=== PATIENT | female | born 1940 | race Caucasian/White ===

== ENCOUNTER 2018-09-14 09:00 | Outpatient (CLI) | payer MEDICARE, OTHER, SELFPAY | END 2018-09-14 09:20 | PROVIDERS: PCP Family Medicine; Visit Provider Nurse Practitioner Adult Health | DX: G31.84 Mild cognitive impairment of uncertain or unknown etiology (principal); I10 Essential (primary) hypertension | CPT/HCPCS: 99213; 99214 ==

== ENCOUNTER → 2018-09-14 09:00 | Outpatient (BNVA) | payer MEDICARE, OTHER, SELFPAY | PROVIDERS: PCP Family Medicine; Visit Provider Nurse Practitioner Adult Health | DX: R41.3 Other amnesia (principal); G31.84 Mild cognitive impairment of uncertain or unknown etiology | CPT/HCPCS: 99214 ==

== ENCOUNTER 2019-03-04 00:35 | Outpatient (CLI) | payer MEDICARE, OTHER, SELFPAY ==
--- NOTE | 2019-03-04 09:37 | DI.MAMMO_ITS ---
SYMPTOM/DIAGNOSIS: SCREENING, Z12.39, PERSONAL H/O BREAST CA, Z85.3 MAMMOGRAMS: Mammograms were interpreted according to the usual protocol including computer analysis with CAD system, tomosynthesis and C view imaging. The breast tissue is heterogeneously radiodense which lowers the sensitivity of the study. When compared with the previous examination, again noted is the region of apparent scarring in the medial portion of the left breast in this patient who is status post lumpectomy. SUMMARY: No evidence of malignancy. Category 1. Yearly screening mammography is recommended. Breast density, category C. MQSA ASSESSMENT OF FINDINGS: Negative. Category 1. Patient will receive a letter notifying them of these results. Bi-RADS category C. The breasts are heterogeneously dense, which may obscure small masses.
== END 2019-03-04 00:55 ==
PROVIDERS: PCP Family Medicine; Visit Provider Family Medicine
DX: Z12.31 Encounter for screening mammogram for malignant neoplasm of breast (principal); Z85.3 Personal history of malignant neoplasm of breast; Z98.890 Other specified postprocedural states
CPT/HCPCS: 77063; 77067

== ENCOUNTER → 2019-03-09 08:20 | Outpatient (BNVA) | payer MEDICARE, OTHER, SELFPAY | PROVIDERS: PCP Family Medicine; Visit Provider Nurse Practitioner Adult Health | DX: G31.84 Mild cognitive impairment of uncertain or unknown etiology (principal); I10 Essential (primary) hypertension | CPT/HCPCS: 99213 ==

== ENCOUNTER 2019-03-26 11:02 | Outpatient (CLI) | payer MEDICARE, OTHER, SELFPAY ==
[2019-03-26 11:32] LABS: HCT 42.8 % (36.0-46.0); Mean Corp. HGB Concentration 32.7 g/dL (32.0-36.0); Mean Corpuscular Hemoglobin 30.8 pg (27.0-33.0); Mean Corpuscular Volume 94.3 fL (80-95); Mean Platelet Volume 9.7 fL (8.0-11.0); Platelet Count 256 x1000/uL (130-400); RBC 4.54 m/cumm (4.00-5.20); RBC Distribution Width 12.9 % (11.7-14.6)
[2019-03-26 12:34] LABS: Anion Gap 4.9 mmol/L (3-11); BUN 15 mg/dL (7-18); CO2 34.1 mmol/L (21.0-32.0); CREATININE 0.89 mg/dL (0.55-1.02); Calcium 9.4 mg/dL (8.5-10.1); Chloride 103 mmol/L (98-107); Glucose 87 mg/dL (70-100); Potassium 3.7 mmol/L (3.5-5.1); Sodium 142 mmol/L (136-145); Vitamin B12 848 pg/mL (193-986)
== END 2019-03-26 11:22 ==
LOC: NCHCN 11:32 → NCHCO 11:52
PROVIDERS: PCP Family Medicine; Visit Provider Family Medicine
DX: I10 Essential (primary) hypertension (principal); E53.8 Deficiency of other specified B group vitamins
CPT/HCPCS: 36415; 80048; 85027; 82607

== ENCOUNTER 2019-08-14 09:51 | Emergency (ER) | payer MEDICARE, OTHER, SELFPAY ==
--- NOTE | 2019-08-14 09:53 | ED.GENADUL_ITS ---
Discharge Plan Disposition Patient Disposition: HOME Condition: Stable Discharge Details Chief Complaint: Laceration Clinical Impression: Finger laceration Primary Care Provider: Ramona Atkins ED Provider: Naheed Ellis Home Meds and New Rx's Prescriptions: New cephalexin [Keflex] 500 mg capsule 500 mg PO QID 7 Days Qty: 28 RF: 0 Continued turmeric root extract 500 mg capsule 500 mg PO DAILY RF: 0 Vitamin B-12 250 mcg tablet 250 mcg PO DAILY RF: 0 losartan 50 MG tablet 25 mg PO DAILY RF: 0 potassium chloride 10 MEQ tablet extended release 10 meq PO BID RF: 0 amlodipine 5 MG tablet 5 mg PO DAILY RF: 0 aspirin [Aspir-81] 81 MG tablet,delayed release (DR/EC) 1 tab PO DAILY RF: 0 hydrochlorothiazide 12.5 MG capsule 12.5 mg PO DAILY RF: 0 Fish Oil 1 EACH capsule 1 tab PO BID RF: 0 cholecalciferol (vitamin D3) [Vitamin D3] 1,000 UNIT capsule 1 cap PO DAILY RF: 0 calcium citrate-vitamin D3 [Citracal + D Maximum] 1 EACH tablet 1 ea PO BID RF: 0 acetaminophen [Mapap Extra Strength] 500 MG tablet 500 mg PO Q4H PRN PRNQty: 30 RF: 0 Discharge Instructions Instructions: Finger Laceration (ED) Additional Instructions: Keep wound clean dry and intact. Cover if risk of contamination but keep open t o air if relaxing at home. Wash with soap and water and cover with topical antibiotic ointment if any sign of redness, swelling or pain. Follow-up with your primary care doctor this week for reevaluation. Return to the emergency department if you develop any worsening or new concerning symptoms. Discharge Data Discharge Physician: Naheed Ellis Medical Decision Making 78-year-old female presents with right thumb puncture wound sustained on possibly a sharp piece of glass while she [place] garbage [place] the [place]. She denies any known needle puncture. There is a small superficial laceration t o her right thumb without tenderness, active bleeding or palpable foreign body. She is neurovascularly intact without evidence of bony injury. We will give a tetanus due to risk of contaminated wound. Patient states she does not think she had a needle puncture and does not want tested for any com municable diseases including HIV, hep C, hep B and does not want any prophylaxis for this. Will send for x-ray to rule out foreign body and so can irrigate her right thumb. Due to risk of unknown contamination, will treat with prophylactic oral antibiotics. X-ray negative for foreign body or fracture. Wound covered with topical antibiotic ointment and Band-Aid. Prescription for Keflex given. She is instructed on proper wound care, follow-up with her primary care doctor for evaluation and to return here at any time if worse. Imaging Data Radiologic Study: Radiologist's impression: XR Right Finger(s) EXAM DATE/TIME: 08/14/2019 10:09 AM CLINICAL HISTORY: 78 years old, female; Injury or trauma; Injury history: Puncture wound distal thumb; Initial encounter; Laceration; Finger; Right TECHNIQUE: Imaging protocol: XR Right fingers. Views: Minimum 2 views. COMPARISON: No relevant prior studies available. FINDINGS: Bones/joints: Degenerative changes in the phone carpometacarpal joint Degenerative changes in the IP joint and thumb metacarpal phalangeal joint There is no evidence of acute fracture. There is no evidence of malalignment or dislocation.. Soft tissues: Soft tissue swelling of the thumb IMPRESSION: There is no evidence of acute fracture. There is no evidence of malalignment or dislocation.. HPI General Mode of arrival: ambulatory . Date/Time Provider Initiated Documentation: 08/14/19 09:53 . Limitations to Documentation: no limitations . Information obtained by: patient . HPI Narrative: Patient is a 78-year-old female who presents with right thumb injury sustained while emptying her trash [place] the dump. Patient states she was unsure that she sustained an injury and only noticed when she got in her car that her right thumb was bleeding. Patient states she was emptying plastic, and bottles and thinks she cut her right thumb on a glass baby bottle that she uses for her cats at home. She states she picked it up to look at it but was unaware that she cut herself. She denies any known needle puncture. She states she is unsure of her tetanus status. She denies any other injuries. She denies known foreign bodies. Related Data Home Medications Medication Instructions Recorded Confirmed Fish Oil 1 tab PO BID 09/04/15 08/14/19 amlodipine 5 mg PO DAILY 09/04/15 08/14/19 aspirin [Aspir-81] 1 tab PO DAILY 09/04/15 08/14/19 hydrochlorothiazide 12.5 mg PO DAILY 09/04/15 08/14/19 losartan 25 mg PO DAILY 09/04/15 08/14/19 potassium chloride 10 meq PO BID 09/04/15 08/14/19 cholecalciferol (vitamin D3) 1 cap PO DAILY 12/04/15 08/14/19 [Vitamin D3] calcium citrate-vitamin D3 1 ea PO BID 05/29/17 08/14/19 [Citracal + D Maximum] acetaminophen [Mapap Extra 500 mg PO Q4H PRN PRN #30 tab 06/05/17 08/14/19 Strength] cyanocobalamin (vitamin B-12) 250 250 mcg PO DAILY 09/14/18 08/14/19 mcg tablet turmeric root extract 500 mg 500 mg PO DAILY 09/14/18 08/14/19 capsule cephalexin [Keflex] 500 mg PO QID 7 Days #28 cap 08/14/19 Previous Rx's Medication Instructions Recorded acetaminophen [Mapap Extra 500 mg PO Q4H PRN PRN #30 tab 06/05/17 Strength] cephalexin [Keflex] 500 mg PO QID 7 Days #28 cap 08/14/19 Allergies Allergy/AdvReac Type Severity Reaction Status Date / Time ibuprofen Allergy Intermediate STOMACH Unverified 08/14/19 09:57 PAIN naproxen sodium [From Aleve] Allergy Intermediate STOMACH Unverified 08/14/19 09:57 PAIN meperidine HCl [From Demerol] AdvReac Intermediate Nausea Unverified 08/14/19 09:57 Review of Systems Review of Systems ROS Unobtainable: All systems reviewed & are unremarkable except as noted in HPI and below PFSH Medical History Cholelithiasis Ductal carcinoma of breast HTN (hypertension) (Chronic) Hypertension Mild cognitive impairment (Chronic) Osteoarthritis of knee, unilateral Tubular adenoma of colon Surgical History Appendectomy 1978 Arthroplasty of knee Right-with menisectomy and medial microfracture procedure for OA Cholecystectomy (06/04/17) Colonoscopy - IV Sedation 2011 discectomy L4-1970 Ligation of fallopian tube 1977 Rotator Cuff Repair 1998 Family History Other Alzheimer's dementia Essential hypertension Heart disease Stroke Social History Smoking/Tobacco Use Status: Former Tobacco Use Alcohol Intake: current Alcohol Intake frequency: a few times a week Drug use: Never Do you feel safe at home: Yes Exam Const General: cooperative, healthy appearing and no acute distress HENMT Head: normal to inspection Mouth: oral mucosae normal Eyes General: appearance normal, both eyes and all related structures Neck Neck: normal visual inspection Resp Effort & Inspection: normal respiratory effort and able to speak in complete sentences Cardio Rate: regular rate Skin General skin exam: no rashes or lesions noted Neuro General: alert, awake and oriented x3 Motor: muscle tone normal throughout Other: Muscle strength 5/5 right thumb. Extrem Hand/finger images: 1. 4mm c shaped superficial laceration on medial aspect of distal finger pad of R thumb. No active bleeding. No tenderness to palpation. No palpable foreign bod y. No erythema, edema, ecchymoses. No bony deformity. Other: Normal range of motion of right thumb. No tendon injury. Psych Appearance: grossly normal Affect: normal affect
[2019-08-14 09:54] VITALS: BP 132/77; PULSE 59; RESP 16; TEMP 36.3; O2SAT 98
--- NOTE | 2019-08-14 10:08 | DI.RAD_ITS ---
SYMPTOM/DIAGNOSIS: S/P PUNCTURE WOUND, ? FX OR FOREIGN BODY RIGHT THUMB: There is no evidence of an acute fracture or dislocation. There are degenerative changes involving the carpal metacarpal joint and interphalangeal joint. Nil else.
--- NOTE | 2019-08-14 10:49 | DI.VRAD_ITS ---
EXAM: XR Right Finger(s) EXAM DATE/TIME: 08/14/2019 10:09 AM CLINICAL HISTORY: 78 years old, female; Injury or trauma; Injury history: Puncture wound distal thumb; Initial encounter; Laceration; Finger; Right TECHNIQUE: Imaging protocol: XR Right fingers. Views: Minimum 2 views. COMPARISON: No relevant prior studies available. FINDINGS: Bones/joints: Degenerative changes in the phone carpometacarpal joint Degenerative changes in the IP joint and thumb metacarpal phalangeal joint There is no evidence of acute fracture. There is no evidence of malalignment or dislocation.. Soft tissues: Soft tissue swelling of the thumb IMPRESSION: There is no evidence of acute fracture. There is no evidence of malalignment or dislocation.. Dictated and Authenticated by: Ana Perez MD. Ordering:AIDE Farfan MD
== END 2019-08-14 11:33 | disposition home or self-care (01) ==
PROVIDERS: Emergency Provider Physician Assistant; PCP Family Medicine
DX: S61.011A Laceration without foreign body of right thumb without damage to nail, initial encounter (principal); W26.8XXA Contact with other sharp object(s), not elsewhere classified, initial encounter; I10 Essential (primary) hypertension
CPT/HCPCS: 90471; 99284; 73140; 99283

== ENCOUNTER 2019-10-22 09:47 | Emergency (ER) | payer MEDICARE, OTHER, SELFPAY ==
[2019-10-22] VITALS (8 sets, daily range): BP systolic 151–173; BP diastolic 82–86; PULSE 61–65; RESP 12–14; TEMP 36.6; O2SAT 97–99
--- NOTE | 2019-10-22 09:50 | ED.GENADUL_ITS ---
Discharge Plan Disposition Patient Disposition: HOME Condition: Stable Discharge Details Chief Complaint: Dizzy/Sync Clinical Impression: Vertigo Primary Care Provider: Ramona Atkins ED Provider: Nestor Edmonds Home Meds and New Rx's Prescriptions: New meclizine 25 mg tablet 25 mg PO TID PRN (Reason: dizziness) Qty: 20 RF: 0 Continued turmeric root extract 500 mg capsule 500 mg PO DAILY RF: 0 Vitamin B-12 250 mcg tablet 250 mcg PO DAILY RF: 0 losartan 50 MG tablet 25 mg PO DAILY RF: 0 potassium chloride 10 MEQ tablet extended release 10 meq PO BID RF: 0 amlodipine 5 MG tablet 5 mg PO DAILY RF: 0 aspirin [Aspir-81] 81 MG tablet,delayed release (DR/EC) 1 tab PO DAILY RF: 0 hydrochlorothiazide 12.5 MG capsule 12.5 mg PO DAILY RF: 0 Fish Oil 1 EACH capsule 1 tab PO BID RF: 0 cholecalciferol (vitamin D3) [Vitamin D3] 1,000 UNIT capsule 1 cap PO DAILY RF: 0 acetaminophen [Mapap Extra Strength] 500 MG tablet 500 mg PO Q4H PRN PRNQty: 30 RF: 0 Discharge Instructions Instructions: Vertigo (ED) Additional Instructions: follow up with your primary care provider within 1 week especially if symptoms continue take the meclizine 3 times a day for the first 2 days then use as needed if you have worsening symptoms, chest pain, weakness return to the emergency department Medical Decision Making 78 yo female with hx of mild cognitive impairment, htn, who comes in with chief complaint of feeling dizzy intermittently with room spinning sensation with head movements for 3 days. Denies fevers, chills, chest pain, abd pain, sob, headache. She called ems today because she felt she might fall due to her dizziness. She was having some word finding difficulty with ems en route so they called in a stroke alert, she arrives caox4 with clear speech, reassuring HINTs exam and nih of 0 and on review of chart has had issues with speech chronically which she states is accurate and her speech is normal for her. I suspect peripheral vertigo, will tx with meclizine and given persistent symptoms for [address] to eval for mass. Given reassuring HINTS and negative NIH doubt cva. No chest pain or sob so doubt acs, pe or dissection at this time pt feeling better with stable neuro exam. Labs and imaging unremarkable. Given improved symptoms and no findings to suggest cva/tia do not feel mri or admission indicated but will make sure she has steady gait before d/c. If she fails this she may require admission for vertigo pt ambulating with steady gait on her own, will d/c home Differential Diagnosis Differential Diagnosis: vertigo, dementia, tia, cva Medical Records Medical records reviewed: Yes I reviewed the patient's medical records. Imaging Data Radiologic Study: Attestation: I personally reviewed and interpreted this imaging study as follows: Imaging: CT Scan Radiologist's impression: IMPRESSION: No acute intracranial process. Lab Data Lab results reviewed: Yes I reviewed the patient's lab results. ECG Data Attestation: I personally reviewed and interpreted this ECG (s) as follows: Prior ECG tracings: not available for review Interpretation: sinus rhythm, rate of 65, pr 206, no acute st t wave ischemic findings HPI General Mode of arrival: EMS . Date/Time Provider Initiated Documentation: 10/22/19 09:48 . Limitations to Documentation: no limitations . Information obtained by: patient . History of Present Illness 78 year old F presents to the emergency department with the chief complaint of dizziness, described as moderate, Patient started experiencing this day(s) (3) and it has been intermittent. No relieving factors improve symptom(s), No exacerb ating factors reported . Patient notes nausea/vomiting. Patient did receive the following treatments prior to arrival, none Related Data Home Medications Medication Instructions Recorded Confirmed Fish Oil 1 tab PO BID 09/04/15 10/22/19 amlodipine 5 mg PO DAILY 09/04/15 10/22/19 aspirin [Aspir-81] 1 tab PO DAILY 09/04/15 10/22/19 hydrochlorothiazide 12.5 mg PO DAILY 09/04/15 10/22/19 losartan 25 mg PO DAILY 09/04/15 10/22/19 potassium chloride 10 meq PO BID 09/04/15 10/22/19 cholecalciferol (vitamin D3) 1 cap PO DAILY 12/04/15 10/22/19 [Vitamin D3] acetaminophen [Mapap Extra 500 mg PO Q4H PRN PRN #30 tab 06/05/17 10/22/19 Strength] cyanocobalamin (vitamin B-12) 250 250 mcg PO DAILY 09/14/18 10/22/19 mcg tablet turmeric root extract 500 mg 500 mg PO DAILY 09/14/18 10/22/19 capsule meclizine 25 mg PO TID PRN #20 tab 10/22/19 Previous Rx's Medication Instructions Recorded acetaminophen [Mapap Extra 500 mg PO Q4H PRN PRN #30 tab 06/05/17 Strength] meclizine 25 mg PO TID PRN #20 tab 10/22/19 Allergies Allergy/AdvReac Type Severity Reaction Status Date / Time ibuprofen Allergy Intermediate STOMACH Unverified 10/22/19 10:14 PAIN naproxen sodium [From Aleve] Allergy Intermediate STOMACH Unverified 10/22/19 10:14 PAIN meperidine HCl [From Demerol] AdvReac Intermediate Nausea Unverified 10/22/19 10:14 General ANNAMARIE: 4 Review of Systems All systems reviewed & are unremarkable except as noted in HPI and below Constitutional Constitutional: Denies chills, Denies fever(s) and Denies weakness Cardiovascular Cardiovascular: Denies chest pain and Denies dyspnea Respiratory Respiratory: Denies dyspnea Gastrointestinal Gastrointestinal: Denies abdominal pain Musculoskeletal Musculoskeletal: Denies joint swelling Neurologic Neurologic: Denies weakness Psychiatric Psychiatric: Denies depression PFSH Social History Smoking/Tobacco Use Status: Former Tobacco Use Alcohol Intake: current Alcohol Intake frequency: a few times a week Drug use: Never Substance use type: does not use Do you feel safe at home: Yes Do you feel safe in your relationship?: Yes Exam Const General: no acute distress Orientation: alert HENMT Head: normal to inspection Ears: external ears normal General nose exam: external nose normal Mouth: moist mucous membranes Eyes General: appearance normal, both eyes and all related structures Neck Neck: normal visual inspection Resp Effort & Inspection: normal respiratory effort and able to speak in complete sentences Cardio Rate: regular rate Skin General skin exam: no rashes or lesions noted Neuro General: alert and oriented x3 Extrem General: normal to inspection Psych Mental Status: mental status grossly normal
--- NOTE | 2019-10-22 09:55 | DI.CT_ITS ---
EXAM: CT HEAD - STROKE PROTOCOL CLINICAL HISTORY: stroke symptoms TECHNIQUE: The exam was performed according to the usual protocol without contrast. COMPARISON: HEAD AND CSPINE W/O CONTRAST from 09/04/2015 FINDINGS: The ventricles and sulci are consistent with the patient's age. There are areas of decreased attenua tion in the white matter, most consistent with small vessel ischemic disease. The ventricles are int act. The basilar cisterns are patent. No acute intracranial hemorrhage, midline shift or mass effec t is present. The visualized paranasal sinuses are clear as are the mastoid air cells. The calvariu m is intact. IMPRESSION: No acute intracranial process. The findings were discussed with the emergency department on the date of the examination.
[2019-10-22 10:14] LABS: Abs Immature Grans 0.01 k/cumm (0.0-0.09); Absolute Basophil Count 0.03 k/cumm (0.0-0.2); Absolute Eosinophil Count 0.12 k/cumm (0.0-0.7); Absolute Lymphocyte Count 2.05 k/cumm (1.2-3.4); Absolute Monocyte Count 0.37 k/cumm (0.11-0.7); Basophils % 0.6; Eosinophils % 2.4; HCT 45.2 % (36.0-46.0); Immature Grans % 0.2; Lymphocytes % 40.4; Mean Corp. HGB Concentration 33.2 g/dL (32.0-36.0); Mean Corpuscular Volume 93.4 fL (80-95); Mean Platelet Volume 9.7 fL (8.0-11.0); Monocytes % 7.3; Neutrophils % 49.1; Platelet Count 289 x1000/uL (130-400); RBC 4.84 m/cumm (4.00-5.20); RBC Distribution Width 12.9 % (11.7-14.6); White Blood Cell Count 5.08 k/cumm (4.4-10.8)
[2019-10-22] MEDS: Meclizine 25 MG TAB PO (10:20)
[2019-10-22] MEDS: Normal Saline Flush 10 ML SYR IVP (10:20)
[2019-10-22 10:26] LABS: PTT Activated 24.2 sec (21.0-31.4); Prothrombin Time 10.2 sec (9.3-11.0)
[2019-10-22 10:44] LABS: ALT 22 U/L (14-59); AST 19 U/L (15-37); Albumin 3.8 g/dL (3.4-5.0); Alkaline Phosphatase 87 U/L (46-116); Anion Gap 7.8 mmol/L (3-11); BUN 16 mg/dL (7-18); Bilirubin, Total 0.4 mg/dL (0.2-1.0); CO2 29.2 mmol/L (21.0-32.0); Calcium 9.6 mg/dL (8.5-10.1); Chloride 103 mmol/L (98-107); Glucose 89 mg/dL (74-106); Potassium 3.5 mmol/L (3.5-5.1); Sodium 140 mmol/L (136-145); Total Protein 8.3 g/dL (6.4-8.2); Troponin I < 0.05 ng/Ml (<0.06)
--- NOTE | 2019-10-22 13:23 | NUR.NOTE ---
Referral faxed and noted.Nursing Note:
== END 2019-10-22 11:27 | disposition home or self-care (01) ==
PROVIDERS: Emergency Provider Emergency Medicine; PCP Family Medicine
DX: R42 Dizziness and giddiness (principal); G31.84 Mild cognitive impairment of uncertain or unknown etiology; I10 Essential (primary) hypertension
CPT/HCPCS: 36415; 80053; 93005; 99285; 70450; 83735; 84484; 85025; 85610; 85730; 93010; J3490

== ENCOUNTER → 2020-03-09 08:48 | Outpatient (BNVA) | payer MEDICARE, OTHER, SELFPAY | PROVIDERS: PCP Family Medicine; Referring Provider Family Medicine; Visit Provider Nurse Practitioner Adult Health | DX: G31.84 Mild cognitive impairment of uncertain or unknown etiology (principal); I10 Essential (primary) hypertension | CPT/HCPCS: 99212; 99441 ==

== ENCOUNTER 2020-03-31 01:59 | Outpatient (CLI) | payer MEDICARE, OTHER, SELFPAY ==
[2020-03-31 12:44] LABS: HCT 41.7 % (36.0-46.0); HGB 13.9 g/dL (12.0-15.5); Mean Corp. HGB Concentration 33.3 g/dL (32.0-36.0); Mean Corpuscular Hemoglobin 31.5 pg (27.0-33.0); Mean Corpuscular Volume 94.6 fL (80-95); Mean Platelet Volume 9.6 fL (8.0-11.0); Platelet Count 290 x1000/uL (130-400); RBC 4.41 m/cumm (4.00-5.20); RBC Distribution Width 13.1 % (11.7-14.6); White Blood Cell Count 5.56 k/cumm (4.4-10.8)
[2020-03-31 13:37] LABS: ALT 23 U/L (14-59); AST 20 U/L (15-37); Albumin 3.6 g/dL (3.4-5.0); Alkaline Phosphatase 83 U/L (46-116); BUN 15 mg/dL (7-18); Bilirubin, Total 0.5 mg/dL (0.2-1.0); CREATININE 0.98 mg/dL (0.55-1.02); Calcium 9.3 mg/dL (8.5-10.1); Chloride 102 mmol/L (98-107); Estimated GFR 54.75 (mL/min/1.73m2); Glucose 75 mg/dL (74-106); Potassium 3.7 mmol/L (3.5-5.1); Sodium 139 mmol/L (136-145); Total Protein 7.3 g/dL (6.4-8.2)
== END 2020-03-31 02:19 ==
PROVIDERS: PCP Family Medicine; Visit Provider Family Medicine
DX: I10 Essential (primary) hypertension (principal); E53.8 Deficiency of other specified B group vitamins
CPT/HCPCS: 36415; 80053; 85027

== ENCOUNTER 2020-04-11 00:41 | Outpatient (CLI) | payer MEDICARE, SELFPAY ==
--- NOTE | 2020-04-11 | DI.MAMMO_ITS ---
EXAM: MAMMO SCREENING 60 MIN DUR CLINICAL HISTORY: SCREENING, PERSONAL H/O BREAST CA,Z85.3, PREVENTIVE HEALTH CARE,Z00.00 TECHNIQUE: Mammograms were interpreted according to the usual protocol including computer analysis w [employer] CAD system, tomosynthesis and C-view imaging. COMPARISON: Examination is compared with previous examinations including March 2019 FINDINGS: The breasts are of moderate density. Note is made of a prior right upper inner quadrant lumpectomy f or breast carcinoma. There is no intramammary mass or clumped microcalcification. Examination is co mpared with previous examinations including March 2019 and there has been no gross interval change in appearance in comparison with the previous studies. IMPRESSION: No specific evidence of malignancy at this time. Routine screening examinations are suggested at yea rly intervals due to the history of breast carcinoma BI-RADS Cat 1 - Negative: Breast Density - Category B - Scattered areas of fibroglandular density:
== END 2020-04-11 01:01 ==
PROVIDERS: PCP Family Medicine; Visit Provider Family Medicine
DX: Z12.31 Encounter for screening mammogram for malignant neoplasm of breast (principal); Z85.3 Personal history of malignant neoplasm of breast
CPT/HCPCS: 77063; 77067

== ENCOUNTER → 2020-05-29 13:31 | Outpatient (BNVA) | payer MEDICARE, SELFPAY | PROVIDERS: PCP Family Medicine; Referring Provider Family Medicine; Visit Provider Nurse Practitioner Adult Health | DX: G31.84 Mild cognitive impairment of uncertain or unknown etiology (principal); F41.9 Anxiety disorder, unspecified; I10 Essential (primary) hypertension | CPT/HCPCS: 99213; 99214 ==

== ENCOUNTER 2020-06-05 02:06 | Outpatient (CLI) | payer MEDICARE, SELFPAY ==
[2020-06-05 11:57] LABS: HCT 39.6 % (36.0-46.0); HGB 13.1 g/dL (12.0-15.5); Mean Corp. HGB Concentration 33.1 g/dL (32.0-36.0); Mean Corpuscular Hemoglobin 30.8 pg (27.0-33.0); Mean Corpuscular Volume 93.2 fL (80-95); Mean Platelet Volume 9.8 fL (8.0-11.0); Platelet Count 296 x1000/uL (130-400); RBC 4.25 m/cumm (4.00-5.20); RBC Distribution Width 12.7 % (11.7-14.6); White Blood Cell Count 5.89 k/cumm (4.4-10.8)
[2020-06-05 13:03] LABS: ALT 16 U/L (14-59); AST 18 U/L (15-37); Albumin 3.5 g/dL (3.4-5.0); Alkaline Phosphatase 82 U/L (46-116); Anion Gap 8.1 mmol/L (3-11); BUN 17 mg/dL (7-18); Bilirubin, Total 0.5 mg/dL (0.2-1.0); CO2 28.9 mmol/L (21.0-32.0); Calcium 9.3 mg/dL (8.5-10.1); Chloride 103 mmol/L (98-107); Folate > 20.0 ng/mL (8.6-20.0); Glucose 104 mg/dL (74-106); Potassium 3.9 mmol/L (3.5-5.1); Sodium 140 mmol/L (136-145); TSH (W/Ref FT4) 1.73 uIU/mL (0.36-3.74); Total Protein 7.1 g/dL (6.4-8.2); Vitamin B12 1897 pg/mL (193-986)
== END 2020-06-05 02:26 ==
PROVIDERS: PCP Family Medicine; Visit Provider Family Medicine
DX: I10 Essential (primary) hypertension (principal); E53.8 Deficiency of other specified B group vitamins; R41.3 Other amnesia
CPT/HCPCS: 36415; 80053; 85027; 82607; 82746; 84443; 85025

== ENCOUNTER → 2020-07-10 13:00 | Outpatient (BNVA) | payer MEDICARE, SELFPAY | PROVIDERS: PCP Family Medicine; Referring Provider Family Medicine; Visit Provider Nurse Practitioner Adult Health | DX: G31.84 Mild cognitive impairment of uncertain or unknown etiology (principal); I10 Essential (primary) hypertension | CPT/HCPCS: 99213 ==

== ENCOUNTER → 2020-08-23 08:35 | Outpatient (BNVA) | payer MEDICARE, SELFPAY | PROVIDERS: PCP Family Medicine; Referring Provider Family Medicine; Visit Provider Nurse Practitioner Adult Health | DX: G31.84 Mild cognitive impairment of uncertain or unknown etiology (principal); I10 Essential (primary) hypertension | CPT/HCPCS: 99213 ==

== ENCOUNTER → 2020-09-07 13:43 | Outpatient (BNVA) | payer MEDICARE, SELFPAY | PROVIDERS: PCP Family Medicine; Referring Provider Family Medicine; Visit Provider Nurse Practitioner Adult Health | DX: G31.84 Mild cognitive impairment of uncertain or unknown etiology (principal); I10 Essential (primary) hypertension | CPT/HCPCS: 99212 ==

== ENCOUNTER → 2020-10-04 08:33 | Outpatient (BNVA) | payer MEDICARE, SELFPAY | PROVIDERS: PCP Family Medicine; Referring Provider Family Medicine; Visit Provider Nurse Practitioner Adult Health | DX: G31.84 Mild cognitive impairment of uncertain or unknown etiology (principal); I10 Essential (primary) hypertension | CPT/HCPCS: 99213 ==

== ENCOUNTER → 2021-01-04 08:12 | Outpatient (BNVA) | payer MEDICARE, SELFPAY | PROVIDERS: PCP Family Medicine; Referring Provider Family Medicine; Visit Provider Nurse Practitioner Adult Health | DX: G30.1 Alzheimer's disease with late onset (principal); F02.80 Dementia in other diseases classified elsewhere, unspecified severity, without behavioral disturbance, psychotic disturbance, mood disturbance, and anxiety | CPT/HCPCS: 99213; 99443 ==

== ENCOUNTER → 2021-04-05 08:40 | Outpatient (BNVA) | payer MEDICARE, SELFPAY | PROVIDERS: PCP Family Medicine; Referring Provider Family Medicine; Visit Provider Nurse Practitioner Adult Health | DX: G30.1 Alzheimer's disease with late onset (principal); F02.80 Dementia in other diseases classified elsewhere, unspecified severity, without behavioral disturbance, psychotic disturbance, mood disturbance, and anxiety; F41.9 Anxiety disorder, unspecified | CPT/HCPCS: 99213; 99215 ==

== ENCOUNTER 2021-10-04 13:03 | Outpatient (REF) | payer MEDICARE, SELFPAY ==
[2021-10-04 14:35] LABS: Anion Gap 8.4 mmol/L (3-11); BUN 17 mg/dL (7-18); CO2 31.6 mmol/L (21.0-32.0); CREATININE 0.9 mg/dL (0.55-1.02); Calcium 9.4 mg/dL (8.5-10.1); Chloride 103 mmol/L (98-107); Glucose 83 mg/dL (74-106); Potassium 3.4 mmol/L (3.5-5.1); Sodium 143 mmol/L (136-145); Vitamin B12 717 pg/mL (193-986)
== END 2021-10-04 13:04 | disposition home or self-care (01) ==
LOC: NCHCN 13:03
PROVIDERS: PCP Family Medicine; Visit Provider Family Medicine
DX: E53.8 Deficiency of other specified B group vitamins (principal); F03.90 Unspecified dementia, unspecified severity, without behavioral disturbance, psychotic disturbance, mood disturbance, and anxiety; I10 Essential (primary) hypertension
CPT/HCPCS: 80048; 82607

== ENCOUNTER 2021-11-06 19:10 | Outpatient (REF) | payer MEDICARE, SELFPAY ==
[2021-11-06 17:32] LABS: Anion Gap 7.7 mmol/L (3-11); BUN 14 mg/dL (7-18); CO2 30.3 mmol/L (21.0-32.0); Chloride 105 mmol/L (98-107); Estimated GFR 53.35 (mL/min/1.73m2); Glucose 80 mg/dL (74-106); Potassium 3.9 mmol/L (3.5-5.1); Sodium 143 mmol/L (136-145)
== END 2021-11-06 19:11 | disposition home or self-care (01) ==
LOC: NCHCN 19:10
PROVIDERS: PCP Family Medicine; Visit Provider Family Medicine
DX: E87.6 Hypokalemia (principal)
CPT/HCPCS: 80048

== ENCOUNTER 2021-11-19 01:01 | Outpatient (CLI) | payer MEDICARE, SELFPAY ==
--- NOTE | 2021-11-19 09:30 | DI.MAMMO_ITS ---
Exam(s) MG MAMMO SCREENING 60 MIN DUR EXAM: MG MAMMO SCREENING 60 MIN DUR CLINICAL HISTORY: HX BREAST CANCER LT BREAST Z85.3, SCREENING FOR BREAST CANCER TECHNIQUE: Mammograms were interpreted according to the usual protocol including computer analysis w [employer] CAD system, tomosynthesis and C-view imaging. COMPARISON: 2012 through 2019 FINDINGS: The breasts are composed of scattered fibroglandular densities, Breast Density category B. No suspicious masses or suspicious microcalcifications are seen in either breast. An area of post jody mpectomy scarring is again noted in the upper inner quadrant of the left breast. Stable left skin thickening. No abnormal axillary lymph nodes are seen. There has been no significant change from prior exams. IMPRESSION: BI-RADS Cat 2 - Benign Findings Yearly screening mammography is recommended. Breast Density - Category B, scattered fibroglandular densities. A negative radiographic report should not delay biopsy if a dominant or clinically suspicious mass is present. Up to ten percent of cancers are not identified on mammography. A negative report may reinforce clinical impression. Adenosis and dense breasts may obscure an underlying neoplasm. False positive reports average 6 to 10%. Patient will receive a letter notifying them of these results.
== END 2021-11-19 01:21 ==
PROVIDERS: PCP Family Medicine; Visit Provider Family Medicine
DX: Z12.31 Encounter for screening mammogram for malignant neoplasm of breast (principal)
CPT/HCPCS: 77063; 77067

== ENCOUNTER → 2021-12-10 09:18 | Outpatient (BNVA) | payer MEDICARE, SELFPAY | PROVIDERS: PCP Family Medicine; Referring Provider Family Medicine; Visit Provider Nurse Practitioner Adult Health | DX: G30.1 Alzheimer's disease with late onset (principal); F02.80 Dementia in other diseases classified elsewhere, unspecified severity, without behavioral disturbance, psychotic disturbance, mood disturbance, and anxiety; F41.9 Anxiety disorder, unspecified; Z79.899 Other long term (current) drug therapy | CPT/HCPCS: 99213; 99214 ==

== ENCOUNTER 2021-12-27 18:50 | Outpatient (REF) | payer MEDICARE, SELFPAY ==
[2021-12-27 18:23] LABS: Anion Gap 9.3 mmol/L (3-11); BUN 16 mg/dL (7-18); CO2 29.7 mmol/L (21.0-32.0); Chloride 104 mmol/L (98-107); Estimated GFR 53.21 (mL/min/1.73m2); Glucose 75 mg/dL (74-106); Potassium 3.4 mmol/L (3.5-5.1); Sodium 143 mmol/L (136-145)
== END 2021-12-27 18:51 | disposition home or self-care (01) ==
LOC: NCHCN 18:50
PROVIDERS: PCP Family Medicine; Visit Provider Family Medicine
DX: I10 Essential (primary) hypertension (principal)
CPT/HCPCS: 80048

== ENCOUNTER → 2022-06-06 10:35 | Outpatient (BNVA) | payer MEDICARE, SELFPAY | PROVIDERS: PCP Family Medicine; Referring Provider Family Medicine; Visit Provider Nurse Practitioner Adult Health | DX: G30.1 Alzheimer's disease with late onset (principal); F02.80 Dementia in other diseases classified elsewhere, unspecified severity, without behavioral disturbance, psychotic disturbance, mood disturbance, and anxiety; F41.9 Anxiety disorder, unspecified; I10 Essential (primary) hypertension | CPT/HCPCS: 99213; 99214 ==

== ENCOUNTER 2022-08-06 15:39 | Outpatient (REF) | payer MEDICARE, SELFPAY ==
[2022-08-06 15:57] LABS: Anion Gap 5.4 mmol/L (3-11); BUN 11 mg/dL (7-18); CO2 30.6 mmol/L (21.0-32.0); Calcium 9.1 mg/dL (8.5-10.1); Chloride 106 mmol/L (98-107); Glucose 83 mg/dL (74-106); Potassium 3.9 mmol/L (3.5-5.1); Sodium 142 mmol/L (136-145)
== END 2022-08-06 15:40 | disposition home or self-care (01) ==
LOC: NCHCN 15:39
PROVIDERS: PCP Family Medicine; Visit Provider Family Medicine
DX: I10 Essential (primary) hypertension (principal)
CPT/HCPCS: 80048

== ENCOUNTER → 2022-11-27 10:56 | Outpatient (BNVA) | payer MEDICARE, SELFPAY | PROVIDERS: PCP Family Medicine; Referring Provider Family Medicine; Visit Provider Nurse Practitioner Adult Health | DX: G30.9 Alzheimer's disease, unspecified (principal); F02.80 Dementia in other diseases classified elsewhere, unspecified severity, without behavioral disturbance, psychotic disturbance, mood disturbance, and anxiety; F41.9 Anxiety disorder, unspecified; M25.561 Pain in right knee; M25.562 Pain in left knee | CPT/HCPCS: 99213; 99214 ==

== ENCOUNTER 2022-12-13 00:42 | Outpatient (CLI) | payer MEDICARE, SELFPAY ==
--- NOTE | 2022-12-13 | DI.DEXA_ITS ---
Exam(s) XR DEXA BONE DENSITY W/WO ROMAINE EXAM: XR DEXA BONE DENSITY W/WO ROMAINE CLINICAL HISTORY: SCREENING FOR OSTEOPOROSIS IN POSTMENOPAUSAL WOMAN,Z78.0 TECHNIQUE: COMPARISON: Comparison examination is 05/15/2015. FINDINGS: Lateral Spine Image: Unremarkable. No compression deformities identified. Left hip: Total T-Score: -1.1. This compares to -0.1 on the prior examination. Total Z-Score: 1.0 T- and Z-scores: Findings are consistent with osteopenia. Lumbar Spine: Total T-Score: 2.9. This compares to 2.8 on the prior examination. Total Z-Score: 5.7 T- and Z-scores: Within normal limits. IMPRESSION: No evidence of osteoporosis.
--- NOTE | 2022-12-13 | DI.MAMMO_ITS ---
Exam(s) MG MAMMO SCREENING 60 MIN DUR EXAM: MG MAMMO SCREENING 60 MIN DUR CLINICAL HISTORY: SCREENING, Z12.39,H/O BREAST CA,Z85.3 TECHNIQUE: Bilateral full field digital CC and MLO mammographic images were obtained with 3D tomosyn thesis and utilizing computer aided detection (CAD). COMPARISON: Available for comparison. FINDINGS: Masses/Architectural Distortion: None seen. The patient is status post left lumpectomy. Microcalcifications: No suspicious pleomorphic-type are seen. Skin Thickening/Nipple Retraction: None. IMPRESSION: 1. No significant interval change with no specific features of malignancy noted. 2. Unless there is more urgent need, screening mammography is recommended, as per [place] [employer] guidelines. 3. Findings were discussed with the patient on the date of the examination. BI-RADS Category 2 - Benign Findings Breast Density - Category C - Heterogeneously dense Breast density category C or D implies that the patient has dense breast tissue. Dense breast tissue is very common and is not abnormal but dense breast tissue can make it harder to find cancer on a ma mmogram. Also, dense breast tissue may increase their breast cancer risk. This information about the result of the mammogram report was provided to the patient to raise their awareness. Use this report when you speak with the patient about their risks for breast cancer, which includes their family hist ory. At that time, you may recommend for more screening tests (Ultrasound or MRI) as they might be us eful based on their risk. A negative radiographic report should not delay biopsy if a dominant or clinically suspicious mass is present. Up to ten percent of cancers are not identified on mammography. A negative report may reinforce clinical impression. Adenosis and dense breasts may obscure an underlying neoplasm. False positive reports average 6 to 10%. Patient will receive a letter notifying them of these results.
== END 2022-12-13 01:02 ==
LOC: DI 00:42
PROVIDERS: PCP Family Medicine; Visit Provider Family Medicine
DX: Z78.0 Asymptomatic menopausal state (principal); Z12.31 Encounter for screening mammogram for malignant neoplasm of breast; R92.8 Other abnormal and inconclusive findings on diagnostic imaging of breast; Z85.3 Personal history of malignant neoplasm of breast; Z13.820 Encounter for screening for osteoporosis; M85.88 Other specified disorders of bone density and structure, other site
CPT/HCPCS: 77063; 77067; 77080

== ENCOUNTER 2023-11-27 09:29 | Outpatient (REF) | payer MEDICARE, SELFPAY ==
[2023-11-27 19:12] LABS: Anion Gap 6.8 mmol/L (3-11); BUN 13 mg/dL (7-18); CO2 31.2 mmol/L (21.0-32.0); CREATININE 0.9 mg/dL (0.55-1.02); Calcium 9.1 mg/dL (8.5-10.1); Chloride 106 mmol/L (98-107); Estimated GFR 63.83 (mL/min/1.73m2); Glucose 104 mg/dL (74-106); Potassium 4.2 mmol/L (3.5-5.1); Sodium 144 mmol/L (136-145); Vitamin B12 820 pg/mL (193-986)
== END 2023-11-27 09:30 | disposition home or self-care (01) ==
LOC: NCHCN 09:29
PROVIDERS: PCP Family Medicine; Visit Provider Family Medicine
DX: E53.8 Deficiency of other specified B group vitamins (principal); I10 Essential (primary) hypertension
CPT/HCPCS: 80048; 82607

== ENCOUNTER 2024-10-18 18:48 | Outpatient (REF) | payer MEDICARE, SELFPAY ==
[2024-10-18 19:32] LABS: BUN 21 mg/dL (7-18); CREATININE 1.2 mg/dL (0.55-1.02); Calcium 9.7 mg/dL (8.5-10.1); Chloride 107 mmol/L (98-107); Estimated GFR 44.91 (mL/min/1.73m2); Glucose 115 mg/dL (74-106); Sodium 143 mmol/L (136-145)
[2024-10-18 19:57] LABS: Hemoglobin A1C 5.1 % (<5.7)
== END 2024-10-18 18:49 | disposition home or self-care (01) ==
LOC: NCHCN 18:48
PROVIDERS: PCP Family Medicine; Visit Provider Family Medicine
DX: Z13.1 Encounter for screening for diabetes mellitus (principal); I10 Essential (primary) hypertension
CPT/HCPCS: 80048; 83036

== ENCOUNTER 2024-10-27 00:54 | Outpatient (CLI) | payer MEDICARE, SELFPAY ==
--- NOTE | 2024-10-27 | DI.MAMMO_ITS ---
Exam(s) MG MAMMO SCREENING 60 MIN DUR EXAM: MG MAMMO SCREENING 60 MIN DUR CLINICAL HISTORY: Screening, Z12.31; personal h/o breast CA TECHNIQUE: Bilateral full field digital CC and MLO mammographic images were obtained with 3D tomosyn thesis and utilizing computer aided detection (CAD). COMPARISON: Available for comparison. FINDINGS: Masses/Architectural Distortion: There is a stable lumpectomy spiculated site in the upper outer quad rant of the left breast. No suspicious nodules are seen. No new areas of architectural distortion a re present. Microcalcifications: No suspicious pleomorphic-type are seen. Skin Thickening/Nipple Retraction: None. IMPRESSION: 1. No significant interval change with no specific features of malignancy noted. 2. Unless there is more urgent need, screening mammography is recommended, as per [employer] guidelines. 3. Findings were discussed with the patient on the date of the examination. BI-RADS Category 2 - Benign Findings Breast Density - Category C - Heterogeneously dense Breast density category C or D implies that the patient has dense breast tissue. Dense breast tissue is very common and is not abnormal but dense breast tissue can make it harder to find cancer on a ma mmogram. Also, dense breast tissue may increase their breast cancer risk. This information about the result of the mammogram report was provided to the patient to raise their awareness. Use this report when you speak with the patient about their risks for breast cancer, which includes their family hist ory. At that time, you may recommend for more screening tests (Ultrasound or MRI) as they might be us eful based on their risk. A negative radiographic report should not delay biopsy if a dominant or clinically suspicious mass is present. Up to ten percent of cancers are not identified on mammography. A negative report may reinforce clinical impression. Adenosis and dense breasts may obscure an underlying neoplasm. False positive reports average 6 to 10%. Patient will receive a letter notifying them of these results.
== END 2024-10-27 01:14 ==
LOC: DI 00:54
PROVIDERS: PCP Family Medicine; Visit Provider Family Medicine
DX: Z12.31 Encounter for screening mammogram for malignant neoplasm of breast (principal); R92.333 Mammographic heterogeneous density, bilateral breasts; D24.9 Benign neoplasm of unspecified breast
CPT/HCPCS: 77063; 77067

== ENCOUNTER 2025-04-21 12:24 | Outpatient (REF) | payer MEDICARE, SELFPAY ==
[2025-04-21 16:14] LABS: Anion Gap 3.5 mmol/L (3-11); BUN 16 mg/dL (7-18); CO2 32.5 mmol/L (21.0-32.0); Calcium 9.5 mg/dL (8.5-10.1); Chloride 105 mmol/L (98-107); Estimated GFR 55.55 (mL/min/1.73m2); Glucose 110 mg/dL (74-106); Potassium 4.4 mmol/L (3.5-5.1); Sodium 141 mmol/L (136-145)
== END 2025-04-21 12:25 | disposition home or self-care (01) ==
LOC: NCHCN 12:24
PROVIDERS: PCP Family Medicine; Visit Provider Family Medicine
DX: I10 Essential (primary) hypertension (principal)
CPT/HCPCS: 80048